=== PATIENT | female | born 1975 | race Caucasian/White ===

== ENCOUNTER → 2022-03-07 13:29 | Outpatient (BNVA) | payer BC, SELFPAY | PROVIDERS: PCP Family Medicine; Visit Provider Emergency Medicine | DX: R39.9 Unspecified symptoms and signs involving the genitourinary system (principal); N30.01 Acute cystitis with hematuria | CPT/HCPCS: 81000 ==

== ENCOUNTER 2022-04-20 01:00 | Emergency (ER) | payer BC, SELFPAY ==
--- NOTE | 2022-04-20 01:03 | XRR_ITS ---
PROCEDURE INFORMATION: Exam: XR Left Ankle Exam date and time: 04/20/2022 2:09 AM Age: 47 years old Clinical indication: Injury or trauma; Blunt trauma; Left; Patient HX: Fall this a. M. C/O pain to lateral side of ankle with swelling to fibular malleolus. TECHNIQUE: Imaging protocol: Radiologic exam of the Left ankle. Views: 3 or more views. COMPARISON: No relevant prior studies available. FINDINGS: Bones/joints: There is a transverse fracture through the lateral malleolus of the distal left fibula. The fracture occurs about 5 mm inferior to the level of the tibiotalar joint. There is 1-2 mm of lateral displacement and distraction of the distal fragment. No other significant acute bone or joint abnormality. Moderate plantar calcaneal spur. Additional smaller spur at the insertion of the Achilles tendon. Soft tissues: Prominent soft tissue swelling over the lateral malleolus. XR/XR ankle LT min 3V* [id number] IMPRESSION: 1. Fracture of the lateral malleolus of the distal left fibula, details above. 2. Other findings discussed above.
[2022-04-20 01:08] VITALS: BP 149/109; PULSE 98; RESP 18; TEMP 36.8; O2SAT 98; BMI 34.9
[2022-04-20] MEDS: HYDROcodone-acetaminophen 5-325 mg Tablet 1 TAB PO (01:38)
--- NOTE | 2022-04-20 01:49 | ED_ITS ---
HPI - Extremity Problem General: Chief complaint: Extremity Injury, Lower Stated complaint: Fell Hurt Left Ankle Time Seen by Provider: 04/20/22 01:04 History of Present Illness: Patient is in tonight for complaints of left lateral ankle pain. She reports that she was out on the deck and fell through a portion of the deck approximately 2 to 3 feet. She reports that she was able to wiggle herself out of the hole and managed to get into the house. He has been unable to bear any weight on the ankle at all. Denies any possibility of . She reports she is up-to-date on tetanus vaccination within the past 10 years Review of Systems Musc: Reports: joint pain, joint swelling and limited range of motion Physical Exam Const: COMMON NORMALS: patient oriented x3 and alert OTHER: Patient is in obvious pain Resp: COMMON NORMALS: normal respiratory effort, No use of accessory muscles and clear to auscultation bilaterally AUSCULTATION: clear to auscultation juan aterally Cardio: COMMON NORMALS: regular rate, regular rhythm, S1 normal heart sound present and S2 normal heart sound present RATE: regular rate RHYTHM: regular rhythm HEART SOUNDS: S1 normal heart sound present and S2 normal heart sound present Extremity: NARRATIVE EXTREMITY EXAM: Left lateral malleolus tender to palpation with moderate swelling. No bruising or erythema appreciated at this time no apparent step-off or bony deformity appreciated. CSM within normal limits. Range of motion not fully assessed related to pain. Patient does not want the foot or ankle touched at all and she is not bearing any weight. Neuro: COMMON NORMALS: patient oriented x3 SENSORIUM/ORIENTATION: Yes alert Course Vital Signs: Vital signs: Vital Signs Temperature 98.2 F 04/20/22 01:08 Pulse Rate 98 04/20/22 01:08 Respiratory Rate 18 04/20/22 01:08 Blood Pressure 149/109 04/20/22 01:08 Pulse Oximetry 98 04/20/22 01:08 Oxygen Delivery Me thod 04/20/22 01:08 MDM - Extremity (Nontraumatic) Medical Decision Making Patient is in today for left lateral ankle pain status post fall through the deck. Physical exam reveals moderate swelling with extreme tenderness to palpation lateral malleolus. Range of motion on exam is limited by pain. CSM within normal limits. X-ray shows lateral malleolus fracture. Will place patient in a posterior short leg splint with stirrup. Discussed with Dr. Atkins who is agreeable to provide patient with hydrocodone for outpatient use. Will refer patient to orthopedics for continued monitoring. Advised patient of conservative treatment. Ice, rest, elevate the extremity. Advised of splint care. Return to the ER for new or worsening symptoms. Lab Data Radiology Impressions Ankle X-Ray 04/20/22 01:03 IMPRESSION: 1. Fracture of the lateral malleolus of the distal left fibula, details above. 2. Other findings discussed above. Discharge Plan Discharge Patient Disposition: Home Clinical Impression: Fracture of lateral malleolus Qualifiers: Encounter type: initial encounter Fracture type: closed Fracture alignment: displaced Laterality: left Qualified Code(s): S82.62XA - Displaced fracture of lateral malleolus of left fibula, initial encounter for closed fracture Condition: Stable Prescriptions: No Action carvedilol [Coreg] 25 mg tablet 25 mg PO ONCE Rx Instructions: must administer with a meal/food ondansetron 8 mg tablet,disintegrating 8 mg PO Q8H PRN (Reason: nausea and vomiting) 5 Days Qty: 14 0RF sulfamethoxazole-trimethoprim [Bactrim DS] 800-160 mg tablet 1 tab PO DAILY 5 Days Qty: 10 0RF Discharge Orders: Discharge ED (Routine); Ordered 04/20/22 Ordered By: Clarice Moss Referrals: Marysol Sun DO [Primary Care Provider] - Discharge Diet: Usual diet Discharge Activity: Use walker/crutches as instructed Patient Instructions: Ankle Fracture (ED), Opioid Safety, Pain Management Activity Restrictions/Additional Instructions: Referral is sent to orthopedics. Follow-up with them as scheduled. Keep the splint in place. Rest, elevate, ice the extremity to help with pain. Take medications as prescribed. Do not drive after taking pain medication do not take any other medications that make you sleepy with this medication. Utilize crutches to stay nonweightbearing until released by orthopedics. Follow-up with PCP. Return to the emergency department as needed for any new or worsening symp toms. Coding Level of Care Code ED Shoe Lay Out Planner for Anand Fwkeyur Exam Expanded Problem Focused
--- NOTE | 2022-04-20 08:14 | DCPLANNER ---
Addendum entered by Courtney Melendrez 05/02/22 16:23: Patient had a follow up appointment scheduled for 04.20.[address] Hobbs at ortho - patient did attend appointment. Original Note: manager merchandise had message to schedule a follow up appointment for patient with ortho. manager merchandise sent patients information to the front office staff at ortho. Patients information will be printed and reviewed. Clinic will call patient with appointment information.
== END 2022-04-20 02:45 | disposition home or self-care (01) ==
PROVIDERS: Emergency Provider Nurse Practitioner Family; PCP Family Medicine
DX: S82.62XA Displaced fracture of lateral malleolus of left fibula, initial encounter for closed fracture (principal); W13.3XXA Fall through floor, initial encounter
CPT/HCPCS: 29515; 73610; 99283; E0114

== ENCOUNTER → 2022-05-03 10:40 | Outpatient (BNVA) | payer BC, SELFPAY | PROVIDERS: PCP Family Medicine; Visit Provider Podiatrist Foot & Ankle Surgery | DX: X58.XXXA Exposure to other specified factors, initial encounter (principal); S82.62XA Displaced fracture of lateral malleolus of left fibula, initial encounter for closed fracture | CPT/HCPCS: 73610 ==

== ENCOUNTER 2022-05-03 15:08 | Outpatient (CLI) | payer BC, SELFPAY | END 2022-05-03 15:09 | disposition home or self-care (01) | LOC: SPT 15:09 | PROVIDERS: PCP Family Medicine; Visit Provider Podiatrist Foot & Ankle Surgery | DX: Z46.89 Encounter for fitting and adjustment of other specified devices (principal); M25.571 Pain in right ankle and joints of right foot; S99.911D Unspecified injury of right ankle, subsequent encounter; X58.XXXD Exposure to other specified factors, subsequent encounter | CPT/HCPCS: 97760; L4361 ==

== ENCOUNTER → 2022-05-17 13:27 | Outpatient (BNVA) | payer BC, SELFPAY | PROVIDERS: PCP Family Medicine; Visit Provider Podiatrist Foot & Ankle Surgery | DX: X58.XXXA Exposure to other specified factors, initial encounter (principal); S82.62XA Displaced fracture of lateral malleolus of left fibula, initial encounter for closed fracture | CPT/HCPCS: 73610 ==

== ENCOUNTER → 2022-05-31 13:48 | Outpatient (BNVA) | payer BC, SELFPAY | PROVIDERS: PCP Family Medicine; Visit Provider Podiatrist Foot & Ankle Surgery | DX: S82.62XA Displaced fracture of lateral malleolus of left fibula, initial encounter for closed fracture (principal); X58.XXXA Exposure to other specified factors, initial encounter | CPT/HCPCS: 73610 ==

== ENCOUNTER 2022-05-31 15:09 | Outpatient (CLI) | payer BC, SELFPAY | END 2022-05-31 15:10 | disposition home or self-care (01) | LOC: SPT 15:09 | PROVIDERS: PCP Family Medicine; Visit Provider Podiatrist Foot & Ankle Surgery | DX: Z46.89 Encounter for fitting and adjustment of other specified devices (principal); S82.62XD Displaced fracture of lateral malleolus of left fibula, subsequent encounter for closed fracture with routine healing; X58.XXXD Exposure to other specified factors, subsequent encounter | CPT/HCPCS: 97760; L1902 ==

== ENCOUNTER 2022-06-12 06:00 | Outpatient (RCR) | payer BC, SELFPAY | END 2022-07-12 23:59 | disposition home or self-care (01) | LOC: SPT 06:00 | PROVIDERS: PCP Family Medicine; Visit Provider Podiatrist Foot & Ankle Surgery | DX: M84.364D Stress fracture, left fibula, subsequent encounter for fracture with routine healing (principal); S82.65XD Nondisplaced fracture of lateral malleolus of left fibula, subsequent encounter for closed fracture with routine healing; X58.XXXD Exposure to other specified factors, subsequent encounter | CPT/HCPCS: 97110; 97162 ==

== ENCOUNTER 2022-07-13 06:00 | Outpatient (RCR) | payer BC, SELFPAY | END 2022-08-09 23:59 | disposition home or self-care (01) | LOC: SPT 06:00 | PROVIDERS: PCP Family Medicine; Visit Provider Podiatrist Foot & Ankle Surgery | DX: M84.364D Stress fracture, left fibula, subsequent encounter for fracture with routine healing (principal); S82.65XD Nondisplaced fracture of lateral malleolus of left fibula, subsequent encounter for closed fracture with routine healing; X58.XXXD Exposure to other specified factors, subsequent encounter | CPT/HCPCS: 97110 ==

== ENCOUNTER 2022-08-05 14:42 | Emergency (ER) | payer BC, SELFPAY ==
[2022-08-05 14:55] VITALS: BMI 33.2
[2022-08-05 14:58] VITALS: BP 125/85; PULSE 86; RESP 18; TEMP 36.4; O2SAT 97
--- NOTE | 2022-08-05 15:59 | ED_ITS ---
HPI - Extremity Injury (Lower) General: Chief Complaint: Extremity Injury, Lower Stated Complaint: Left leg injury Time Seen by Provider: 08/05/22 15:57 Source: patient Mode of arrival: ambulatory Limitations: no limitations History of Present Illness: Patient is a 47-year-old female presents to ED today for evaluation of a left ankle injury that she sustained earlier today when she rolled the ankle in her home. Patient states she broke her lateral malleolus back in April and has been following up with podiatry ever since. She states she has had residual swelling to the lateral aspect of that ankle since the initial fracture. Patient states she is concerned that she re-broke her ankle. She has no other injuries or complaints at this time. Denies numbness, tingling, loss of sensation, color/temperature changes in extremity. MD complaint: ankle injury Onset (ago): hour(s) Injury: Left: ankle Place: home Severity: moderate Relieving factors: immobilization Exacerbating factors: weight bearing and movement Associated symptoms: Reports no associated symptoms Other symptoms: none Review of Systems Musc: Reports: joint pain (L ankle) and joint swelling (L ankle-states swelling has been present since initial fracture back in Apr); Denies: neck pain, back pain, extremity pain, extremity swelling, joint redness or joint warmth Physical Exam Const: COMMON NORMALS: no acute distress, average body habitus, patient oriented x3, no limitations, healthy appearing, alert and well nourished Extremity: GENERAL: Yes normal exam except as noted LEFT LOWER EXTREMITY: Yes ankle joint (TTP and swelling to L lateral malleolus; states swelling is normal since fx) Left ankle: Yes neurovascular exam (normal) Neuro: COMMON NORMALS: patient oriented x3, moves all extremities, no focal motor deficits and no sensory deficits noted SENSORIUM/ORIENTATION: Yes alert Course Vital Signs: Vital signs: Vital Signs Temperature 97.6 F 08/05/22 14:58 Pulse Rate 83 08/05/22 17:09 Respiratory Rate 18 08/05/22 17:09 Blood Pressure 125/85 08/05/22 14:58 Pulse Oximetry 97 08/05/22 14:58 Oxygen Delivery Me thod 08/05/22 14:58 MDM - Extremity Injury (Lower) Medical Decision Making XR showing old/chronic/known lateral malleolus fracture but nothing acute. Recommend using her ankle brace/TERESA wrap/crutches as needed. She states she has a follow up appointment with podiatry in 2 weeks already scheduled. Lab Data Radiology Impressions Ankle X-Ray 08/05/22 16:16 IMPRESSION: No acute fracture or dislocation. Lateral ankle soft tissue swelling is noted. Discharge Plan Discharge Patient Disposition: Home Clinical Impression: Left ankle sprain Qualifiers: Encounter type: initial encounter Involved ligament of ankle: unspecified ligament Qualified Code(s): S93.402A - Sprain of unspecified ligament of left ankle, initial encounter Condition: Stable Prescriptions: No Action carvedilol [Coreg] 25 mg tablet 25 mg PO ONCE Rx Instructions: must administer with a meal/food ondansetron 8 mg tablet,disintegrating 8 mg PO Q8H PRN (Reason: nausea and vomiting) 5 Days Qty: 14 0RF sulfamethoxazole-trimethoprim [Bactrim DS] 800-160 mg tablet 1 tab PO DAILY 5 Days Qty: 10 0RF (DME) cam boot See Rx Instructions .Route .MEDSUPPLY Qty: 1 0RF Rx Instructions: As directed Farxiga 5 mg tablet 5 mg PO DAILY cholecalciferol (vitamin D3) 1,250 mcg (50,000 unit) capsule PO (DME) ASO brace See Rx Instructions .Route .MEDSUPPLY Qty: 1 0RF Rx Instructions: As directed Discharge Orders: Discharge ED (Routine); Ordered 08/05/22 Ordered By: Tess Lowery Referrals: Marysol Sun, [Primary Care Provider] - Activity Restrictions/Additional Instructions: As we discussed please follow up with Dr. Hobbs on 08/12 as directed. Wear splint/TERESA wrap and weight bearing as tolerated. Coding Level of Care Code ED Parts Counter Representative for Anand Castaneda
--- NOTE | 2022-08-05 16:16 | XRR_ITS ---
PROCEDURE INFORMATION: Exam: XR Left Ankle Exam date and time: 08/05/2022 4:37 PM Age: 47 years old Clinical indication: Injury or trauma; Fall; Swelling (edema); Ankle; Left; Additional info: Injury, distal fib FX back in nov TECHNIQUE: Imaging protocol: Radiologic exam of the left ankle. Views: 3 or more views. COMPARISON: CR XR ankle LT min 3V* [id number] 05/03/2022 10:42 AM FINDINGS: Bones/joints: Chronic lateral malleolus fracture is noted. No acute fracture or dislocation. A small plantar calcaneal spur is present. Soft tissues: Mild soft tissue swelling is present in the lateral ankle. XR/XR ankle LT min 3V* [id number] IMPRESSION: No acute fracture or dislocation. Lateral ankle soft tissue swelling is noted.
[2022-08-05 17:09] VITALS: PULSE 83; RESP 18
== END 2022-08-05 17:10 | disposition home or self-care (01) ==
PROVIDERS: Emergency Provider Physician Assistant; PCP Family Medicine
DX: S93.402A Sprain of unspecified ligament of left ankle, initial encounter (principal); X50.1XXA Overexertion from prolonged static or awkward postures, initial encounter
CPT/HCPCS: 73610; 99283

== ENCOUNTER 2022-08-10 06:00 | Outpatient (RCR) | payer BC, SELFPAY | END 2022-09-09 23:59 | disposition home or self-care (01) | LOC: SPT 06:00 | PROVIDERS: PCP Family Medicine; Visit Provider Podiatrist Foot & Ankle Surgery | DX: S82.65XD Nondisplaced fracture of lateral malleolus of left fibula, subsequent encounter for closed fracture with routine healing (principal); X58.XXXD Exposure to other specified factors, subsequent encounter | CPT/HCPCS: 97110; G0283 ==

== ENCOUNTER 2023-05-25 08:46 | Outpatient (CLI) | payer BC, SELFPAY ==
--- NOTE | 2023-05-25 08:56 | FL_ITS ---
WS: [id number] Exam: FL barium swallow [id number] Date/Time of Exam: 05/25/2023 9:04 AM Reason For Exam: DYSPHAGIA Fluoroscopy time: 1min [id number] minutes # of spot films: Oropharyngeal phase of swallowing was normal. There is smooth extrinsic posterior compression of the cervical esophagus most marked at the C4-5 level most likely due to thickening of the anterior longit udinal ligament and anterior spondylosis at C3-4 and C4-5. No intrinsic esophageal mass was demonstra viji. The remaining esophagus is patent with normal motility. No hiatal hernia or gastroesophageal ref lux is noted. IMPRESSION: 1. Smooth extrinsic posterior compression of the cervical esophagus most marked at C4-5 likely due to thickening and hypertrophy of the anterior longitudinal ligament and anterior spondylosis at this le rosy. 2. No intrinsic esophageal mass was noted. The remaining esophagus was normal.
== END 2023-05-25 08:47 | disposition home or self-care (01) ==
PROVIDERS: PCP Family Medicine; Visit Provider Specialist
DX: K22.2 Esophageal obstruction (principal); M47.812 Spondylosis without myelopathy or radiculopathy, cervical region; R13.10 Dysphagia, unspecified
CPT/HCPCS: 74220

== ENCOUNTER 2023-07-04 11:38 | Outpatient (CLI) | payer BC, SELFPAY ==
--- NOTE | 2023-07-04 11:52 | CT_ITS ---
WS: [id number] CT NECK WITH CONTRAST HISTORY: DYSPHAGIA TECHNIQUE: Contiguous 2 mm axial images are performed through the neck with intravenous contrast. Sag ittal and coronal reformats are also submitted. All CT scans at [facility] [place] use at least one o f these dose optimization techniques: automated exposure control; mA and/or kV adjustment per patient size (includes targeted exams where dose is matched to clinical indication); or iterative reconstruc tion. CONTRAST: CONTRAST: Omnipaque 350; 100 mL IV. DLP: 192.69 mGy.cm COMPARISON: None available. Nasopharynx, oropharynx, hypopharynx and larynx are unremarkable. No soft tissue masses or abnormal e nhancement. Torus tubarius and fossa of Rosenmuller and parapharyngeal fat are normal. No significant lymphadenopathy is identified. 4 mm RIGHT thyroid nodule. Salivary glands are negative otherwise. No osseous abnormalities. Visualized portions of the skull base demonstrate no abnormalities. Orbits and globes are within norm al limits. No soft tissue masses. Mucous retention cyst LEFT maxillary sinus. Lung apices are clear. IMPRESSION: 1. No cervical chain lymphadenopathy. 2. No laryngeal mass. 3. 4 mm RIGHT thyroid nodule.
[2023-07-04] MEDS: iohexol 350 mg/mL 500 mL Btl (per mL) IV (12:18)
== END 2023-07-04 11:39 | disposition home or self-care (01) ==
LOC: RAD 11:46
PROVIDERS: PCP Family Medicine; Visit Provider Specialist
DX: R13.10 Dysphagia, unspecified (principal); E04.1 Nontoxic single thyroid nodule
CPT/HCPCS: 70491; Q9967

== ENCOUNTER 2023-07-05 12:46 | Outpatient (CLI) | payer BC, SELFPAY ==
[2023-07-05 13:07] LABS: Basophils # 0.1 10^3/uL (0.0-0.1); Basophils % 1.9 %; Eosinophils # 0.2 10^3/uL (0.0-0.8); Eosinophils % 2.9 %; Hematocrit 41.5 % (36-47); Lymphocytes # 2.3 10^3/uL (0.8-4.8); Lymphocytes % 39.3 %; Mean Corpuscular Hemoglobin 35.6 pg (27-33); Mean Corpuscular Volume 104.8 fl (85-98); Mean Platelet Volume 9.3 fL (7.4-10.4); Monocytes # 0.6 10^3/uL (0.2-0.9); Monocytes % 9.5 %; Neutrophils # 2.67 10^3/uL (1.8-7.7); Neutrophils % 45.9 %; Nucleated Red Blood Cells % 0 %; Platelet Count 162 10^3/cmm (157-399); Red Blood Count 3.96 10^6/uL (3.85-5.65); Red Cell Distribution Width 12.7 % (12.1-15.1); White Blood Count 5.82 10^3/uL (3.29-11.43)
[2023-07-05 13:24] LABS: Blood Urea Nitrogen 10 mg/dL (6-20); Calcium 9.7 mg/dL (8.5-10.5); Carbon Dioxide 21 mmol/L (22-29); Chloride 101 mmol/L (98-107); Glomerular Filtration Rate 235.5 mL/min (90-130); Glucose 74 mg/dL (65-115); Osmolality Calculated 292 mOsm/kg (285-295); Sodium 142 mmol/L (136-145)
[2023-07-05 13:26] LABS: Anion Gap 23.9 (5-19); Potassium 3.9 mmol/L (3.5-5.1)
== END 2023-07-05 12:47 | disposition home or self-care (01) ==
LOC: LAB 12:49
PROVIDERS: PCP Family Medicine; Visit Provider Specialist
DX: Z01.818 Encounter for other preprocedural examination (principal)
CPT/HCPCS: 36415; 80048; 85025

== ENCOUNTER → 2024-12-15 17:07 | Outpatient (BNVA) | payer BC, SELFPAY | PROVIDERS: PCP Family Medicine; Visit Provider Registered Nurse Neonatal Intensive Care | DX: R39.9 Unspecified symptoms and signs involving the genitourinary system (principal) | CPT/HCPCS: 81000; 87086 ==